=== PATIENT | male | born 1985 | race African-American/Black ===

== ENCOUNTER 2018-12-20 00:19 | Emergency (ER) | payer OTHER ==
--- NOTE | 2018-12-20 00:46 | ED ---
Back Pain - HPI Summary HPI Summary: Patient is a 33 y/o M presenting to ED with complaints of intermittent right lower back pain for the past few days. He denies radiation of pain to his buttocks or legs. Weakness and numbness are additionally denied. He endorses some exacerbation of pain with movement of right leg. He states that he has been taking BC powder but otherwise denies any usage of medications. PMHx is denied. On triage, pain is rated 8/10. Home medications and allergies are reviewed. - History of Current Complaint Chief Complaint: EDBackInjuryPain Stated Complaint: BACK PAIN PER PT Time Seen by Provider: 12/20/18 00:39 Hx Obtained From: Patient Onset/Duration: Lasting Days Onset/Duration: Started Days Ago Timing: Intermittent, Lasting Days Back Pain Location: Is Discrete @ - right lower back Severity Currently: Severe Pain Intensity: 8 Pain Scale Used: 0-10 Numeric Aggravating Symptom(s): Movement Alleviating Symptom(s): Nothing Associated Signs And Symptoms: Negative: Weakness, Numbness - Allergies/Home Medications Allergies/Adverse Reactions: Allergies Allergy/AdvReac Type Severity Reaction Status Date / Time No Known Allergies Allergy Verified 12/20/18 00:22 PMH/Surg Hx/FS Hx/Imm Hx Endocrine/Hematology History: Denies: Hx Diabetes Cardiovascular History: Denies: Hx Hypertension Sensory History: Denies: Hx Legally Blind, Hx Deafness Opthamlomology History: Denies: Hx Legally Blind EENT History: Denies: Hx Deafness Infectious Disease History: No Infectious Disease History: Denies: Traveled Outside the [place] in Last 30 Days - Family History Known Family History: Negative: Hypertension, Diabetes - Social History Alcohol Use: None Substance Use Type: Reports: None Smoking Status (MU): Former Smoker Review of Systems Musculoskeletal: Other - positive - right lower back pain Negative: Weakness, Numbness All Other Systems Reviewed And Are Negative: Yes Physical Exam - Summary Physical Exam Summary: VITAL SIGNS: Reviewed. GENERAL: Patient is a well-developed and nourished male who is lying comfortable in the stretcher. Patient is not in any acute respiratory distress. HEAD AND FACE: No signs of trauma. No ecchymosis, hematomas or skull depressions. No sinus tenderness. EYES: PERRLA, EOMI x 2, No injected conjunctiva, no nystagmus. EARS: Hearing grossly intact. Ear canals and tympanic membranes are within normal limits. MOUTH: Oropharynx within normal limits. NECK: Supple, trachea is midline, no adenopathy, no JVD, no carotid bruit, no c- spine tenderness, neck with full ROM CHEST: Symmetric, no tenderness at palpation LUNGS: Clear to auscultation bilaterally. No wheezing or crackles. CVS: Regular rate and rhythm, S1 and S2 present, no murmurs or gallops appreciated. ABDOMEN: Soft, non-tender. No signs of distention. No rebound no guarding, and no masses palpated. Bowel sounds are normal. EXTREMITIES: FROM in all major joints, no edema, no cyanosis or clubbing. Right straight leg raise test positive at sixty degrees. NEURO: Alert and oriented x 3. No acute neurological deficits. Speech is normal and follows commands. SKIN: Dry and warm Triage Information Reviewed: Yes Vital Signs On Initial Exam: Initial Vitals Temp Pulse Resp BP Pulse Ox 99.1 F 117 17 172/97 98 12/20/18 00:21 12/20/18 00:21 12/20/18 00:21 12/20/18 00:21 12/20/18 00:21 Vital Signs Reviewed: Yes Diagnostics - Vital Signs Vital Signs Temp Pulse Resp BP Pulse Ox 12/20/18 00:21 99.1 F 117 17 172/97 98 - Laboratory Lab Statement: Any lab studies that have been ordered have been reviewed, and results considered in the medical decision making process. Back Pain Course/Dx - Course Course Of Treatment: Patient is a 33 y/o M presenting to ED with complaints of intermittent right lower back pain for the past few days. He denies radiation of pain to his buttocks or legs. Weakness and numbness are additionally denied. He endorses some exacerbation of pain with movement of right leg. He states that he has been taking BC powder but otherwise denies any usage of medications. PMHx is denied. On physical exam, right straight leg raise test positive at sixty degrees. During ED course, patient received Toradol 30 mg IM and Flexeril 10 mg PO. He was given a prescription for Motrin and Flexeril and was discharged to home with PCP follow up. He is agreeable with this. - Diagnoses Provider Diagnoses: Back pain Discharge - Sign-Out/Discharge Documenting (check all that apply): Patient Departure - discharge Patient Received Moderate/Deep Sedation with Procedure: No - Discharge Plan Condition: Stable Disposition: HOME Prescriptions: Cyclobenzaprine TAB* [Flexeril 10 MG TAB*] 10 mg PO TID PRN #20 tab PRN Reason: Spasms - Back Ibuprofen TAB* [Motrin TAB* 800 MG] 800 mg PO Q6H PRN #30 tab PRN Reason: Pain - Back Patient Education Materials: Back Pain (ED) Referrals: [facility] [Outside] - 3 Days Additional Instructions: PLEASE RETURN TO THE ED IMMEDIATELY FOR WORSENING OR CONCERNING SYMPTOMS. FOLLOW UP WITH YOUR PRIMARY CARE PHYSICIAN WITHIN THREE DAYS. - Attestation Statements Document Initiated by Scribe: Yes Documenting Scribe: ZOEY MAYFIELD Provider For Whom Scribe is Documenting (Include Credential): JEAN GONZALEZ MD Scribe Attestation: ZOEY Dubois, scribed for JEAN GONZALEZ MD on 12/20/18 at 0155. Status of Scribe Document: Ready
[2018-12-20] MEDS ORDERED: Ketorolac INJ* 30 MG/ML 1 ML VIAL IM ONE (00:47)
[2018-12-20] MEDS ORDERED: Cyclobenzaprine TAB* 10 MG PO ONE (00:47)
[2018-12-20 01:43] VITALS: BP 142/82
== END 2018-12-20 01:42 | disposition home or self-care (01) ==
LOC: ED 00:19
DX: M54.9 Dorsalgia, unspecified (principal); Z87.891 Personal history of nicotine dependence
CPT/HCPCS: 96372; 99283; A9270-GY; J1885